=== PATIENT | female | born 1945 | race Caucasian/White ===

== ENCOUNTER 2019-09-05 05:28 | Day surgery (SDC) | payer MEDICARE, OTHER ==
[2019-09-05] MEDS ORDERED: PROPARACAINE 0.5% OPHTH SOL 15 ML BTTL ONE ×2 (05:39→06:00)
[2019-09-05] MEDS ORDERED: MOXIFLOXACIN HCL (OPHTH) 1 DROP DROPS ONE (05:39)
[2019-09-05] MEDS ORDERED: TROP1%/CYCLOPEN 1%/PHENYL 2.5% DROPS ONE ×2 (05:39→06:00)
== END 2019-09-05 07:14 | disposition home or self-care (01) ==
LOC: AMB 05:28
PROVIDERS: ATTEND Ophthalmology
DX: H26.492 Other secondary cataract, left eye (principal); Z79.899 Other long term (current) drug therapy